=== PATIENT | male | born 1995 | race Caucasian/White ===

== ENCOUNTER 2019-05-06 15:45 | Emergency (ER) | payer OTHER ==
[2019-05-06] MEDS ORDERED: Ibuprofen TAB* 600 MG PO ONE (16:20)
[2019-05-06] MEDS ORDERED: Acetaminophen TAB* 325 MG PO ONE (16:20)
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
[2019-05-06 18:07] VITALS: BP 119/63
== END 2019-05-06 18:06 | disposition home or self-care (01) ==
LOC: ED 15:45
DX: S40.212A Abrasion of left shoulder, initial encounter (principal); V89.2XXA Person injured in unspecified motor-vehicle accident, traffic, initial encounter; Y92.410 Unspecified street and highway as the place of occurrence of the external cause
CPT/HCPCS: 71045; 99282; A9270-GY